=== PATIENT | female | born 1990 | race Caucasian/White ===

== ENCOUNTER 2022-11-22 18:37 | Emergency (ER) | payer BC ==
[2022-11-22] MEDS ORDERED: Sodium Chloride 0.9% 10 ML Syringe FLUSH PRN (19:00)
[2022-11-22] MEDS ORDERED: Sodium Chloride 0.9% 1,000 ML IV ONE (19:00)
[2022-11-22] MEDS ORDERED: Ketorolac 30 MG/ML SDV IVPUSH ONE (19:00)
[2022-11-22 19:32] LABS: BASOPHILS ABSOLUTE AUTO 0.04 10^3/uL (0.00-0.10); BASOPHILS PERCENT AUTO 0.2 % (0.0-1.0); EOSINOPHILS ABSOLUTE AUTO 0.16 10^3/uL (0.10-0.30); EOSINOPHILS PERCENT AUTO 0.9 % (1.0-3.0); IMMATURE GRAN ABSOLUTE AUTO 0.03 10^3/uL (0.00-0.50); IMMATURE GRAN PERCENT AUTO 0.2 % (0.0-5.0); LYMPHOCYTES ABSOLUTE AUTO 2.99 10^3/uL (1.00-4.00); LYMPHOCYTES PERCENT AUTO 16.8 % (20.0-40.0); MEAN CORPUSCULAR HEMOGLOBIN 30.4 pg (27.0-31.0); MEAN CORPUSCULAR HGB CONC 33.3 g/dL (32.0-36.0); MEAN CORPUSCULAR VOLUME 91.3 fL (82.0-92.0); MEAN PLATELET VOLUME 12.4 fL (7.4-10.4); MONOCYTES ABSOLUTE AUTO 1.26 10^3/uL (0.10-0.80); MONOCYTES PERCENT AUTO 7.1 % (2.0-8.0); NEUTROPHILS ABSOLUTE AUTO 13.34 10^3/uL (2.50-7.00); NEUTROPHILS PERCENT AUTO 74.8 % (50.0-70.0); PLATELET COUNT,PLT 213 10^3/uL (150-400); RED BLOOD CELL COUNT 4.93 10^6/uL (3.80-5.50); RED CELL DISTRIBUTION WIDTH 13.2 % (11.5-14.5); WHITE BLOOD CELL COUNT,WBC 17.82 10^3/uL (5.00-10.00)
[2022-11-22 19:40] LABS: APPEARANCE,URINE CLEAR (CLEAR); BILIRUBIN,URINE NEGATIVE (NEGATIVE); COLOR,URINE YELLOW (YELLOW); GLUCOSE,URINE NEGATIVE (NEGATIVE); KETONES,URINE NEGATIVE (NEGATIVE); LEUKOCYTE ESTERASE,URINE NEGATIVE (NEGATIVE); NITRITE,URINE NEGATIVE (NEGATIVE); OCCULT BLOOD,URINE NEGATIVE (NEGATIVE); PH,URINE 6.5 (5.0-9.0); PROTEIN,URINE NEGATIVE (NEGATIVE); UROBILINOGEN,URINE 0.2 E.U./dL (0.2-1.0)
[2022-11-22 19:43] LABS: ALBUMIN 3.74 g/dL (3.40-5.00); ANION GAP 12.8 mmol/L (5-15); BILIRUBIN TOTAL 0.2 mg/dL (0.2-1.0); CALCIUM 9.4 mg/dL (8.7-10.3); CARBON DIOXIDE,CO2 29.2 mmol/L (21.0-32.0); CREATININE 0.73 mg/dL (0.51-1.17); EST CRCL DRUG DOSING (CG) 99.55 mL/min; PROTEIN TOTAL,TP 7.5 g/dL (6.4-8.2)
[2022-11-22] MEDS ORDERED: Ciprofloxacin 500 MG Tab PO ONE ×2 (20:41→20:43)
[2022-11-22] MEDS ORDERED: metroNIDAZOLE 500 MG Tab PO ONE (20:42)
[2022-11-22] MEDS ORDERED: metroNIDAZOLE 500 MG Tab PO SCH (20:45)
== END 2022-11-22 20:55 | disposition home or self-care (01) ==
LOC: KA.ED 18:37
DX: K57.32 Diverticulitis of large intestine without perforation or abscess without bleeding (principal)
CPT/HCPCS: 74176; 80053; 81003; 82150; 83690; 85025; 96361; 96374; 99284; A9270; J1885; J7030

== ENCOUNTER 2024-10-04 10:04 | Day surgery (SDC) | payer BC ==
[~2024-10-04 10:04] MED LIST: Sodium Chloride 0.9% 10 ML Syringe FLUSH PRN
[2024-10-04] MEDS: Lactated Ringers 1,000 ML IV SCH (10:40)
[2024-10-04] MEDS ORDERED: Propofol 200 MG/20 ML SDV ONE (11:23)
[2024-10-04] MEDS ORDERED: Midazolam 1 MG/ML 2 ML SDV ONE (11:23)
== END 2024-10-04 13:20 | disposition home or self-care (01) ==
LOC: KA.SDS 10:04
PROVIDERS: ATTEND Family Medicine
DX: K62.1 Rectal polyp (principal); K59.09 Other constipation; K57.30 Diverticulosis of large intestine without perforation or abscess without bleeding; K64.8 Other hemorrhoids; E66.9 Obesity, unspecified; Z79.899 Other long term (current) drug therapy
CPT/HCPCS: 00811; 81025; J2250; J2704; J7120

== ENCOUNTER 2024-12-19 17:18 | Emergency (ER) | payer BC ==
[2024-12-19] MEDS ORDERED: Sodium Chloride 0.9% 10 ML Syringe FLUSH PRN (17:43)
[2024-12-19 17:49] LABS: BASOPHILS ABSOLUTE AUTO 0.04 10^3/uL (0.00-0.10); BASOPHILS PERCENT AUTO 0.3 % (0.0-1.0); EOSINOPHILS ABSOLUTE AUTO 0.19 10^3/uL (0.10-0.30); EOSINOPHILS PERCENT AUTO 1.6 % (1.0-3.0); IMMATURE GRAN ABSOLUTE AUTO 0.01 10^3/uL (0.00-0.04); IMMATURE GRAN PERCENT AUTO 0.1 % (0.0-0.4); LYMPHOCYTES ABSOLUTE AUTO 3.42 10^3/uL (1.00-4.00); LYMPHOCYTES PERCENT AUTO 29.3 % (20.0-40.0); MEAN PLATELET VOLUME 11.4 fL (7.4-10.4); MONOCYTES ABSOLUTE AUTO 0.68 10^3/uL (0.10-0.80); MONOCYTES PERCENT AUTO 5.8 % (2.0-8.0); NEUTROPHILS ABSOLUTE AUTO 7.32 10^3/uL (2.50-7.00); NEUTROPHILS PERCENT AUTO 62.9 % (50.0-70.0); PLATELET COUNT,PLT 170 10^3/uL (150-400); RED BLOOD CELL COUNT 4.32 10^6/uL (3.80-5.50); RED CELL DISTRIBUTION WIDTH 13.0 % (11.5-14.5); WHITE BLOOD CELL COUNT,WBC 11.66 10^3/uL (5.00-10.00)
[2024-12-19 17:53] LABS: APPEARANCE,URINE CLEAR (CLEAR); GLUCOSE,URINE NEGATIVE (NEGATIVE); OCCULT BLOOD,URINE NEGATIVE (NEGATIVE)
[2024-12-19 18:03] LABS: SQUAMOUS EPITHELIAL CELLS,UR FEW /HPF (NOT SEEN)
[2024-12-19 18:28] LABS: ALANINE AMINOTRANSFERASE,ALT 21.0 U/L (14-63); ASPARTATE AMNIOTRANSFERASE,AST 10.0 U/L (15-37); BILIRUBIN TOTAL 0.3 mg/dL (0.2-1.0); BLOOD UREA NITROGEN,BUN 12.0 mg/dL (7-18); CARBON DIOXIDE,CO2 26.1 mmol/L (21.0-32.0); CHLORIDE,CL 101.0 mmol/L (98-107); CREATININE 0.6 mg/dL (0.51-1.17); EST CRCL DRUG DOSING (CG) 118.88 mL/min; ESTIMATED GFR 121.0 mL/min (>=60); GLUCOSE RANDOM 79.0 mg/dL (70-140); HCG QUANTITATIVE 41290.0 mIU/mL; POTASSIUM,K 3.6 mmol/L (3.5-5.1); PROTEIN TOTAL,TP 7.6 g/dL (6.4-8.2); SODIUM,NA 137.0 mmol/L (136-145)
== END 2024-12-19 19:22 ==
LOC: KA.ED 17:18
DX: O99.891 Other specified diseases and conditions complicating pregnancy (principal); R10.20 Pelvic and perineal pain unspecified side; Z3A.01 Less than 8 weeks gestation of pregnancy
CPT/HCPCS: 36415; 80053; 81001; 83690; 84702; 85025; 96360; 99283; 99284-25; J7030